=== PATIENT | female | born 1950 | race Caucasian/White ===

== ENCOUNTER 2019-07-12 18:10 | Emergency (ER) | payer MEDICARE ==
[2019-07-12 18:29] VITALS: BP 150/60
[2019-07-12] MEDS ORDERED: Acetaminophen TAB* 325 MG PO ONE (18:38)
--- NOTE | 2019-07-12 19:16 | UC ---
Respiratory Complaint HPI - HPI Summary HPI Summary: 68-year-old woman comes in with a chief complaint of left scapular area pain. Also been having cough chest congestion and sputum production that yellow. Patient has COPD she does use inhalers. Also been having fevers. She's noticed a decreased appetite for the last couple of days. Symptoms going on for couple of days. Denies any pedal edema or calf pain. - History of Current Complaint Chief Complaint: UCChestPain Stated Complaint: LEFT SHOULDER PAIN Time Seen by Provider: 07/12/19 18:29 Pain Intensity: 0 - Allergies/Home Medications Allergies/Adverse Reactions: Allergies Allergy/AdvReac Type Severity Reaction Status Date / Time latex Allergy Intermediate welts and Verified 07/12/19 18:29 itchy procaine [From Novocain] Allergy Intermediate Numbness Verified 07/12/19 18:29 PMH/Surg Hx/FS Hx/Imm Hx Previously Healthy: Yes - reports a history of right leg DVT about 5 years ago. Endocrine History: Diabetes Other Endocrine History: denies being on blood thinners at this time. Cardiovascular History: Hypertension Respiratory History: COPD GI/ History: Gastroesophageal Reflux - Surgical History Surgical History: Yes Surgery Procedure, Year, and Place: tubal ligation 1978. hysterectomy 1979. endometriosis laser surgery. ganglion cyst removed. right total hip replaced - Social History Alcohol Use: None Substance Use Type: None Smoking Status (MU): Heavy Every Day Tobacco Smoker Amount Used/How Often: 1 ppd smoked since 18 years old - Immunization History Most Recent Influenza Vaccination: none Most Recent Pneumonia Vaccination: none Review of Systems All Other Systems Reviewed And Are Negative: Yes Constitutional: Positive: Fever, Other - SEE HPI Skin: Positive: Negative Eyes: Positive: Negative ENT: Positive: Nasal Discharge Respiratory: Positive: Cough, Other - SEE HPI Cardiovascular: Positive: Chest Pain - SEE HPI Gastrointestinal: Positive: Negative Motor: Positive: Negative Neurovascular: Positive: Negative Musculoskeletal: Positive: Negative. Negative: Calf Tenderness, Edema Neurological: Positive: Negative Psychological: Positive: Negative Is Patient Immunocompromised?: No Physical Exam Triage Information Reviewed: Yes Appearance: No Pain Distress, Well-Nourished, Ill-Appearing - MILD Vital Signs: Initial Vital Signs Temp 101.4 F 07/12/19 18:16 Pulse 87 07/12/19 18:16 Resp 20 07/12/19 18:16 BP 150/60 07/12/19 18:16 Pulse Ox 92 07/12/19 18:16 Vital Signs Reviewed: Yes Eye Exam: Normal Eyes: Positive: Conjunctiva Clear ENT: Positive: Nasal congestion Neck: Positive: Supple Respiratory: Positive: No respiratory distress, Rhonchi - LEFT Cardiovascular: Positive: RRR Musculoskeletal: Positive: Strength Intact, ROM Intact, No Edema - No calf tenderness Neurological: Positive: Alert, Muscle Tone Normal Psychological: Positive: Age Appropriate Behavior Skin Exam: Normal Diagnostics - EKG Cardiac Rate: NL - AT 18:20 Cardiac Rhythm: Sinus: Normal - 85BPM Ectopy: None ST Segment: Normal Respiratory Course/Dx - Course Course Of Treatment: I discussed the chest x-ray with the patient. I see an infiltrate in the left upper lung. I discussed with the patient that the safest way to treat this is to go the emergency department and receive IV antibiotics and determine if she needs to be admitted to the hospital. Patient declined and she would rather treat as an outpatient. We'll treat for pneumonia. Patient does have COPD so will use a combination of Omnicef and azithromycin. Patient did agree that if she did not improve her got worse she would go the emergency department. Her neighbor was here with her and the patient reports the neighbor does check on her frequently. - Differential Dx/Diagnosis Provider Diagnosis: Pneumonia involving left lung Discharge ED - Sign-Out/Discharge Documenting (check all that apply): Patient Departure All imaging exams completed and their final reports reviewed: No - Discharge Plan Condition: Stable Disposition: HOME Prescriptions: Azithromyxin CRISTIN (NF) [Z-Cristin (Zithromax) 250 mg tabs #6] 2 tab PO .TODAY, THEN 1 DAILY #6 tab Cefdinir [Cefdinir 300 MG CAP] 300 mg PO BID #20 cap Patient Education Materials: Community Acquired Pneumonia (ED) Referrals: Dakota Rios PA [Primary Care Provider] - Additional Instructions: FOLLOW UP WITH YOUR DOCTOR. GO TO THE EMERGENCY DEPARTMENT IF NOT IMPROVING OR WORSE OR ANY QUESTIONS OR CONCERNS. - Billing Disposition and Condition Condition: STABLE Disposition: Home
--- NOTE | 2019-07-13 08:06 | UC ---
- Progress Note Progress Note: chest xray report : IMPRESSION: PROBABLE LEFT UPPER LOBE MASS AND MEDIASTINAL ADENOPATHY LESS LIKELY AN INFILTRATE AND A ENLARGED AORTA. RECOMMEND A CT OF THE CHEST WITH CONTRAST FOR FURTHER EVALUATION. preliminary xray was red a pneumonia please call the pt with her xray report , please have her return back to the Urgent care [facility] for recheck and CT of chest with contrast Course/Dx - Diagnoses Provider Diagnoses: Pneumonia involving left lung Discharge ED - Sign-Out/Discharge Documenting (check all that apply): Patient Departure All imaging exams completed and their final reports reviewed: Yes - Discharge Plan Condition: Stable Disposition: HOME Prescriptions: Azithromyxin CRISTIN (NF) [Z-Cristin (Zithromax) 250 mg tabs #6] 2 tab PO .TODAY, THEN 1 DAILY #6 tab Cefdinir [Cefdinir 300 MG CAP] 300 mg PO BID #20 cap Patient Education Materials: Community Acquired Pneumonia (ED) Referrals: Dakota Rios PA [Primary Care Provider] - Additional Instructions: FOLLOW UP WITH YOUR DOCTOR. GO TO THE EMERGENCY DEPARTMENT IF NOT IMPROVING OR WORSE OR ANY QUESTIONS OR CONCERNS. - Billing Disposition and Condition Condition: STABLE Disposition: Home
== END 2019-07-12 19:29 | disposition home or self-care (01) ==
LOC: UCCORT 18:10
DX: J18.9 Pneumonia, unspecified organism (principal); J44.9 Chronic obstructive pulmonary disease, unspecified; E11.9 Type 2 diabetes mellitus without complications; I10 Essential (primary) hypertension; M79.669 Pain in unspecified lower leg; F17.210 Nicotine dependence, cigarettes, uncomplicated; Z91.040 Latex allergy status; Z79.899 Other long term (current) drug therapy; Z88.4 Allergy status to anesthetic agent
CPT/HCPCS: 71046; 93005; 99212; A9270-GY; G0463

== ENCOUNTER 2019-07-14 10:29 | Emergency (ER) | payer MEDICARE ==
[2019-07-14 10:56] VITALS: BP 89/64
--- NOTE | 2019-07-14 11:36 | UC ---
Respiratory Complaint HPI - HPI Summary HPI Summary: cough x 1 month cough is productive, pt. was seen 2 days ago at the Urgent care , was dx with pneumonia chest xray showed possible left upper lung mass, recommendation by radiology to have CT lungs with contrast pt. is a smoker 1ppd for the past 50 years , + weight loss , - History of Current Complaint Chief Complaint: UCRespiratory Stated Complaint: CT FOLLOW UP Time Seen by Provider: 07/14/19 10:38 Hx Obtained From: Patient Onset/Duration: Gradual Onset, Lasting Weeks - 4, Still Present Timing: Constant Severity Initially: Moderate Severity Currently: Moderate Pain Intensity: 0 Character: Cough: Productive Aggravating Factors: Exertion, Deep Breaths Alleviating Factors: Nothing Associated Signs And Symptoms: Positive: Dyspnea, Fever, Chills, Wheezing, URI, Nasal Congestion. Negative: Calf Pain, Calf Swelling - Allergies/Home Medications Allergies/Adverse Reactions: Allergies Allergy/AdvReac Type Severity Reaction Status Date / Time latex Allergy Intermediate welts and Verified 07/14/19 10:49 itchy procaine [From Novocain] Allergy Intermediate Numbness Verified 07/14/19 10:49 Home Medications: Home Medications Albuterol HFA INHALER* [Ventolin HFA Inhaler*] 1 - 2 puff INH Q4H PRN 07/14/19 [ History Confirmed 07/14/19] Budesonide/Formote 80/4.5(NF) [Symbicort 80/4.5 (NF)] 1 puff INH BID 07/14/19 [ History Confirmed 07/14/19] Tiotropium CAPSULE (NF) [Spiriva CAPSULE (NF)] 1 cap.inh INH DAILY 07/14/19 [ History Confirmed 07/14/19] PMH/Surg Hx/FS Hx/Imm Hx Cardiovascular History: Hypertension Respiratory History: COPD - Surgical History Surgical History: Yes Surgery Procedure, Year, and Place: tubal ligation 1978. hysterectomy 1979. endometriosis laser surgery. ganglion cyst removed. right total hip replaced. L total hip - Family History Known Family History: Negative: Diabetes - Social History Alcohol Use: None Substance Use Type: None Smoking Status (MU): Heavy Every Day Tobacco Smoker Amount Used/How Often: 1 ppd smoked since 18 years old - Immunization History Most Recent Influenza Vaccination: none Most Recent Pneumonia Vaccination: none Review of Systems All Other Systems Reviewed And Are Negative: Yes Is Patient Immunocompromised?: No Physical Exam Triage Information Reviewed: Yes Appearance: Well-Appearing, No Pain Distress, Obese Vital Signs: Initial Vital Signs Temp 98.1 F 07/14/19 10:52 Pulse 90 07/14/19 10:52 Resp 20 07/14/19 10:52 BP 89/64 07/14/19 10:52 Pulse Ox 95 07/14/19 10:52 Vital Signs Reviewed: Yes Eye Exam: Normal Eyes: Positive: Conjunctiva Clear ENT: Positive: Normal ENT inspection, Hearing grossly normal, Pharynx normal Neck: Positive: Supple, Nontender, No Lymphadenopathy Respiratory: Positive: Crackles. Negative: Respiratory distress Cardiovascular: Positive: RRR, No Murmur, Pulses Normal Respiratory Course/Dx - Differential Dx/Diagnosis Provider Diagnosis: Lung mass, Pneumonia Discharge ED - Sign-Out/Discharge Documenting (check all that apply): Patient Departure All imaging exams completed and their final reports reviewed: No Studies - Discharge Plan Condition: Stable Disposition: HOME Patient Education Materials: Pneumonia (ED) Referrals: Dakota Rios PA [Primary Care Provider] - 1 Day Additional Instructions: chest xray : ? lung mass left upper need a CT chest with contrast please go to your pcp's office now Darci Rios , he will give you the order for blood work and Ct - Billing Disposition and Condition Condition: STABLE Disposition: Home
== END 2019-07-14 11:35 | disposition home or self-care (01) ==
LOC: UCCORT 10:29
DX: J18.9 Pneumonia, unspecified organism (principal); R91.8 Other nonspecific abnormal finding of lung field; I10 Essential (primary) hypertension; J44.9 Chronic obstructive pulmonary disease, unspecified; F17.210 Nicotine dependence, cigarettes, uncomplicated; Z91.040 Latex allergy status; Z88.1 Allergy status to other antibiotic agents; Z79.899 Other long term (current) drug therapy
CPT/HCPCS: 99212; G0463